=== PATIENT | male | born 1980 | race Caucasian/White ===

== ENCOUNTER 2017-06-19 06:57 | Emergency (ER) | payer OTHER ==
[~2017-06-19] VITALS: Ht 180.3 cm; Wt 95.2 kg
[~2017-06-19 06:57] MED LIST: DAYPRO600 MG PO; LORTAB 7.5-3251 EACH PO
[2017-06-19] MEDS ORDERED: KETOROLAC TROME10 MG PO (07:19)
== END 2017-06-19 07:22 | disposition home or self-care (01) ==
LOC: ED 06:57
DX: K40.90 Unilateral inguinal hernia, without obstruction or gangrene, not specified as recurrent (principal); F17.200 Nicotine dependence, unspecified, uncomplicated; Z88.0 Allergy status to penicillin
CPT/HCPCS: 99283

== ENCOUNTER 2019-01-23 19:25 | Emergency (ER) | payer SELFPAY ==
[~2019-01-23] VITALS: Ht 180.3 cm; Wt 85.7 kg
[~2019-01-23 19:25] MED LIST changes: +KETOROLAC TROME10 MG PO
== END 2019-01-23 21:30 | disposition home or self-care (01) ==
LOC: ED 19:25
DX: G43.909 Migraine, unspecified, not intractable, without status migrainosus (principal); I10 Essential (primary) hypertension; F17.200 Nicotine dependence, unspecified, uncomplicated; Z88.0 Allergy status to penicillin
CPT/HCPCS: 80053; 85025; 96361; 96374; 96375; 99284-25; J1200; J1885; J2765; J7030

== ENCOUNTER 2021-04-05 16:58 | Emergency (ER) | payer OTHER ==
[~2021-04-05] VITALS: Ht 180.3 cm; Wt 85.7 kg
[2021-04-05] MEDS ORDERED: MELOXICAM7.5 MG PO (17:16)
== END 2021-04-05 17:51 | disposition home or self-care (01) ==
LOC: ED 16:58
DX: S76.311A Strain of muscle, fascia and tendon of the posterior muscle group at thigh level, right thigh, initial encounter (principal); X50.9XXA Other and unspecified overexertion or strenuous movements or postures, initial encounter; I10 Essential (primary) hypertension; F17.200 Nicotine dependence, unspecified, uncomplicated; Z88.0 Allergy status to penicillin
CPT/HCPCS: 73552; 96372; 99283-25; J1885